=== PATIENT | male | born 1935 ===

== ENCOUNTER 2016-05-26 13:06 | Inpatient (IN) | payer BC ==
[2016-05-26] MEDS ORDERED: Nitroglycerin TAB 0.4 MG* 0.4 MG TAB SL PRN (13:37)
[2016-05-26] MEDS ORDERED: PROCHLORPERAZINE INJ 5 MG/ML 2 ML VIAL IV PRN (13:37)
[2016-05-26] MEDS ORDERED: Morphine INJ* 2 MG/ML 1 ML CARPUJECT IV PRN (13:37)
[2016-05-26] MEDS: Acetaminophen TAB* 325 MG PO PRN ×2 (13:58→20:32)
[2016-05-26] MEDS ORDERED: Heparin VIAL(*) 5000 UNITS/ML VIAL (FIVE THOUSAND) SUBCUT SCH (14:00)
[2016-05-26 14:29] LABS: Hematocrit 37 % (42-52); Hemoglobin 11.9 g/dl (14.0-18.0); Mean Corpuscular HGB Conc 33 g/dl (31-36); Mean Corpuscular Hemoglobin 28 pg (27-31); Mean Corpuscular Volume 86 fL (80-94); Mean Platelet Volume 8 um3 (7.4-10.4); Red Blood Count 4.24 10^6/ul (4.0-5.4); Red Cell Distribution Width 15 % (10.5-15); White Blood Count 8.6 10^3/ul (3.5-10.8)
[2016-05-26 14:45] LABS: Albumin 3.4 g/dL (3.2-5.2); BUN/Creatinine Ratio 22.2 (8-20); EGFR African American 70.8 (>60); EGFR Non-African American 55.1 (>60); Globulin 2.8 g/dL (2-4); Potassium 4.5 mmol/L (3.5-5.0); Total Bilirubin 0.5 mg/dL (0.2-1.0); Total Protein 6.2 g/dL (6.4-8.9)
[2016-05-26 14:55] LABS: HDL Cholesterol 31.1 mg/dL
[2016-05-26] MEDS: Insulin GLARGINE(*) 1 UNITS UNIT SUBCUT SCH (15:04)
[2016-05-26 15:13] LABS: Troponin I 0.09 ng/mL (<0.04)
[2016-05-26 15:16] LABS: TSH (Thyroid Stimulating Horm) 1.08 mcIU/mL (0.34-5.60)
[2016-05-26] MEDS: Insulin LISPRO* 1 UNITS UNIT SUBCUT SCH ×3 (17:43→20:40)
[2016-05-26] MEDS ORDERED: Heparin DRIP 25,000 UNITS(*) 25,000 UNITS/500 ML BAG IV SCH (17:45)
--- NOTE | 2016-05-26 17:59 | PN ---
Hospitalist Progress Note HOSPITALIST ADDENDUM Patient's troponin continues to trend up, now at 0.15. He remains chest pain free, but does have a good story and risk factors. We reviewed risks and benefits of anticoagulation. He reports some blood on the toilet paper when he has a BM (likely hemorrhoidal), but at this point, I believe benefits surpass risks. Will start heparin drip with no boluses and monitor closely. Continue to monitor troponins until peak. updated at bedside.
[2016-05-26] MEDS ORDERED: Heparin VIAL(*) 5000 UNITS/ML VIAL (FIVE THOUSAND) IV SCH (18:00)
[2016-05-26 18:23] LABS: Hematocrit 36 % (42-52); Hemoglobin 11.7 g/dl (14.0-18.0); Mean Corpuscular HGB Conc 33 g/dl (31-36); Mean Corpuscular Hemoglobin 28 pg (27-31); Mean Corpuscular Volume 85 fL (80-94); Mean Platelet Volume 7 um3 (7.4-10.4); Red Blood Count 4.22 10^6/ul (4.0-5.4); Red Cell Distribution Width 15 % (10.5-15); White Blood Count 6.7 10^3/ul (3.5-10.8)
[2016-05-26] MEDS ORDERED: Diazepam TAB(*) 5 MG PO ONE (18:40)
[2016-05-26] MEDS ORDERED: diPHENhydraMINE PO* 50 MG PO ONE (18:40)
[2016-05-26] MEDS ORDERED: NS 0.45% 1000 ML BAG* 1,000 ML IV SCH (18:40)
--- NOTE | 2016-05-26 19:04 | HP ---
HISTORY AND PHYSICAL: DATE OF ADMISSION: 05/26/16 TIME OF EVALUATION: 12:40 p.m. PRIMARY CARE PROVIDER: Dr. Irais Awan. CHIEF COMPLAINT: Chest pain. HISTORY OF PRESENT ILLNESS: Mr. Hayden is an 81-year-old male with a past medical history of hypertension, diabetes, obesity, who presented to the [facility] with complaints of chest pain. The patient states that he woke up in his usual state of health, went to the bathroom, and started to have retrosternal discomfort that rapidly progressed to severe pain, 9/10 in intensity that he describes as a pressure and heaviness on his chest, radiating to his neck. This was associated with dyspnea, diaphoresis, nausea, and he called his to go to the emergency room. He states that he has taken an aspirin at home and by the time he got to the hospital, it was at least half an hour later and he was still having pain, but after receiving medications in the emergency room, he states the pain resolved and he has remained chest pain free since then. He denies any prior episodes of chest pain like this. He states that he was on his usual state of health when he went to bed last night and that he actually felt well when he woke up this morning, just when he went to the bathroom, he has had the symptoms started. He states that for the past month, he has noted some dyspnea at night associated with dry cough to the point that he has to sit up and start to cough , but he denies paroxysmal nocturnal dyspnea, lower extremity edema, weight gain , fever, chills, urinary or GI symptoms. PAST MEDICAL HISTORY: 1. Obesity. 2. Hypertension. 3. Type 2 diabetes. 4. BPH. 5. Arthritis. 6. GERD. PAST SURGICAL HISTORY: The patient had diverticulitis complicated by an abscess requiring colon resection done at [facility] in August 2015. MEDICATIONS: Medication list: 1. Amlodipine 5 mg p.o. daily. 2. Finasteride 5 mg p.o. daily. 3. Glipizide 10 mg p.o. b.i.d. 4. Metformin 1000 mg p.o. b.i.d. 5. Multivitamin 1 tablet p.o. daily. 6. Fish oil 2400 mg p.o. daily. 7. Omeprazole 20 mg p.o. daily. 8. Terazosin 6 mg p.o. at bedtime. 9. Triamterene/hydrochlorothiazide 37.5/25 mg 1 capsule p.o. daily. 10. Valsartan 80 mg p.o. daily. ALLERGIES: No known drug allergies. The patient had peripheral neuropathy with ciprofloxacin according to records from [facility]. FAMILY HISTORY: The patient's mother of some malignancy, but he does not know what kind. He denies history of coronary artery disease in his family. SOCIAL HISTORY: He was a smoker for more than 30 years, but he has quit 40 years ago. He denies any alcohol or drug use. Surrogate decision maker is his , Pat Hayden, phone #[phone]. REVIEW OF SYSTEMS: A 14-point review of systems was performed and all the pertinent negative and positive findings are in the HPI. PHYSICAL EXAMINATION GENERAL: The patient is a pleasant, obese, elderly male, lying in bed, in no acute distress. VITAL SIGNS: Temperature 97.3, heart rate is 65, respiratory rate is 18, blood pressure is 111/67. HEENT: Pupils are equal, reactive to light. Moist mucous membranes. NECK: There is no JVD. CHEST: Breath sounds present bilaterally with no added sounds. CARDIOVASCULAR: Normal S1, S2. Regular rate and rhythm. ABDOMEN: Obese, soft, nontender, nondistended. Bowel sounds are present. EXTREMITIES: No edema. The patient has bilateral upper and lower extremity pulses that are equal. NEURO: He is alert, awake, oriented x3. Able to move all 4 extremities. DIAGNOSTIC STUDIES/LAB DATA: The patient had a CBC done at [facility] that showed a WBC of 8.9, hemoglobin of 13.6, hematocrit of 40, platelets of 257 with 54% neutrophils. INR was 0.95. Glucose 295, BUN 27, creatinine 1.4, sodium 138, potassium 4.1, chloride of 101, bicarb of 25, anion gap of 16, calcium of 9, total protein of 7, albumin of 3.3, AST 22, ALT 35, alk phos 55. CPK 91. Troponin was 0.01. There is no report of a chest x-ray. Initial EKG done on May 26 at 10:16 showed a narrow complex tachycardia at 121 beats per minute with no ST-T changes, but Q waves in II and aVF. Repeat EKG was done prior to transfer on the same date at 11:35 a.m. and it showed sinus rhythm with a first-degree AV block with the same Q waves in II and aVF, but no other ST-T changes. We have no prior EKG in our system to compare. ASSESSMENT AND PLAN: Mr. Hayden is an 81-year-old male with a past medical history of type 2 diabetes, hypertension, benign prostatic hyperplasia, arthritis, gastroesophageal reflux disease, who presented to the [facility] with complaints of chest pain, shortness of breath, and diaphoresis, transferred to our facility for further workup. 1. Chest pain. The patient's description of his chest pain is concerning. It is retrosternal in location, pressure in nature associated with dyspnea and diaphoresis. He does have risk factors for coronary artery disease including diabetes and hypertension. We have no prior EKGs to compare at this time and he is going to be admitted for observation to telemetry. He is going to have serial EKGs and serial cardiac enzymes. At the time of this interview, he is chest pain free. We are going to continue low-dose aspirin. We are going to add statin and as he is a little bradycardic now, I am going to hold off on the beta itz and continue to monitor him on telemetry. If acute coronary syndrome is ruled out, the patient will undergo a pharmacological nuclear stress test in the morning. At this point, he is chest pain free. His EKG shows no acute changes. First cardiac enzyme was negative, so I believe further anticoagulation is not indicated at this point. 2. Episode of supraventricular tachycardia. The patient's EKG from [facility] showed narrow complex tachycardia. He received amiodarone while in the emergency room because his blood pressure was 113/76, but apparently no other agents had been tried prior to that and his rhythm now is sinus with a first- degree AV block. At this point, we are just going to monitor him on telemetry and I am going to check a thyroid function test. 3. Episodes of nocturnal dyspnea. Although his nocturnal cough can be associated with postnasal drip, I am concerned over the possibility of congestive heart failure. The patient is going to have an echocardiogram checked. At this time, his lungs sound clear. He has no lower extremity edema. So, I believe further diaphoresis is not indicated. I am just going to continue his usual triamterene and hydrochlorothiazide. 4. Type 2 diabetes. I am going to hold glipizide and metformin for now. The patient will receive Lantus and lispro sliding scale. 5. Hypertension. It is controlled at this time. I am going to continue his valsartan, amlodipine, terazosin, and diuretics with holding parameters. 6. Benign prostatic hyperplasia. Continue finasteride. 7. DVT prophylaxis. The patient has a score of 4 on the DVT Prophylaxis Risk Assessment Guide and he will be started on subcutaneous heparin. 8. Code status was discussed with the patient and he wishes to be a full code. TIME SPENT: Sixty-five minutes was spent with the patient interview, medical records review, physical examination to complete this admission, more than half this time was spent [id number] with the patient and coordination of care. We are going to obtain records from his PCP and from [facility] from his prior surgery in August 2015. CC: [facility] Womack, [place], phone #[phone] * [id number]/[facility] #: [id number] JOLYNN
[2016-05-26] MEDS: Atorvastatin* 20 MG TAB PO SCH (20:30)
[2016-05-26] MEDS: Terazosin CAP* 1 MG PO SCH (20:31)
[2016-05-26] MEDS: Terazosin CAP* 5 MG PO SCH (20:38)
--- NOTE | 2016-05-26 21:26 | CONS ---
CARDIOLOGY CONSULT REPORT: DATE OF CONSULT: 05/26/16 HISTORY OF PRESENT ILLNESS: I was asked by Dr. Acosta to see this 81-year-old male patient, who was transferred from [facility] after he presented there with chest pain and tachycardia. He received amiodarone and he was transferred here for further management. I was called because of increasing troponin and comorbidities. He had abnormal EKG here, which showed sinus or possible ectopic or sinus with first-degree AV block, Q waves in leads II, III, and aVF, and J-point elevation in leads V1, V2, and V3, borderline in nature. He does have significant comorbidities including systemic arterial hypertension ; hyperlipidemia; diabetes mellitus, type 2; morbid obesity; very remote history of tobacco consumption. Since been at [facility], he has been chest- pain free. He gives no nausea, no vomiting. No myocardial infarction. He gives no tachycardia. He gives no orthopnea. No history of congestive heart failure. In our facility here, he had been having troponins increasing and the first troponin is 0.09 at 14:20, the second troponin 0.15 at 1633. He is chest- pain free. His review of all other systems essentially is negative. PAST MEDICAL HISTORY: Includes systemic arterial hypertension, diabetes, morbid obesity, hyperlipidemia. PAST SURGICAL HISTORY: He had a history of partial colectomy secondary to diverticulitis. MEDICATIONS: As an inpatient include: 1. Heparin. 2. Lantus insulin. 3. Prilosec 20 mg daily. 4. Hytrin 1 mg at bedtime and 5 mg as well at bedtime. 5. Dyazide. 6. Diovan 80 mg daily. He is not on beta-itz treatment, we are trying to find out if there is any reason why he is not. The monitor is showing some pauses. ALLERGIES: He is allergic to CIPROFLOXACIN. SOCIAL HISTORY: No history of smoking, he did smoke many years ago, he quit. No history of illicit drug use. No history of alcohol drinking. He is . He has 3 kids, doing well. REVIEW OF SYSTEMS: Review of all other systems essentially is negative. PHYSICAL EXAM: He is awake, alert, and oriented. He is not in any acute distress. He has no symptoms of chest pain at the moment. Vitals: Blood pressure 121/65, pulse 78 and sinus rhythm, temperature 97.5, respiratory rate 16. Head and Neck Exam: Normocephalic, atraumatic head. Ears, nose, and throat essentially benign. Neck: Supple. JVP is not elevated. No carotid bruit. No masses in the neck are appreciated. Chest: Clear to auscultation. No rales, no wheezes, no added sounds appreciated. Heart: Normal, regular, S1 , S2. No added sound, no gallops, no rubs. Abdomen: Obese, soft. Positive bowel sounds. Extremities: No edema, no cyanosis, no clubbing. Skin Exam: Normal. Psych: Normal affect and mood. FULL STACK DEVELOPER: No focal deficits appreciated. DIAGNOSTIC STUDIES/LAB DATA: EKG as described. His white blood cells 8.6, hemoglobin 11.9, hematocrit 37, and platelets 207. Sodium 135, potassium 4.5, chloride 105, total CO2 25, BUN 28, creatinine 1.26, his glucose 235. Troponin 0.09 and then 0.15. Total protein 6.2. Triglycerides 323, cholesterol 182, LDL 86, HDL 31. TSH 1.08. IMPRESSION: The patient is an 81-year-old male patient with: 1. Presentation with symptoms of chest pain; abnormal troponins, still going up ; abnormal EKG as described, very concerning for coronary artery disease. 2. Abnormal troponin. 3. Abnormal EKG as described. 4. Morbid obesity. 5. Diabetes mellitus, type 2. 6. Systemic arterial hypertension. 7. Significant hypertriglyceridemia and low HDL syndrome. 8. Mildly elevated creatinine. PLAN: I am very concerned about his presentation for coronary artery disease. Based on his initial presentation with chest pain, based on his abnormal EKG, based on troponin still rising, I do recommend a left cardiac catheterization to evaluate definitely his coronary anatomy. Benefits and risks discussed with the patient and he is willing to proceed. Any further decisions will be based on the results of his echo. Meanwhile, he is to continue on heparin, aspirin, and Norvasc for now as well as Lipitor. We will find out if we can initiate a very low-dose beta-itz treatment and I will obtain a transthoracic echocardiogram to evaluate his left ventricular systolic function and any wall motion abnormality and any significant valvular disease. I answered all his concerns and questions up to his satisfaction. TIME SPENT: More than half of at least 65-plus minutes was in the education and counseling mode explaining all of the above plan to him and answering all of his concerns and questions up to his satisfaction. CC: Dr. Acosta; Dr. Solis [id number]/[facility] #: [id number] JOLYNN
[2016-05-27 02:45] LABS: Calcium 8.8 mg/dL (8.6-10.3); EGFR African American 73.5 (>60); EGFR Non-African American 57.2 (>60); Potassium 4.1 mmol/L (3.5-5.0)
[2016-05-27 02:50] LABS: Troponin I 0.11 ng/mL (<0.04)
[2016-05-27 07:26] LABS: Hematocrit 34 % (42-52); Hemoglobin 11.5 g/dl (14.0-18.0); Mean Corpuscular HGB Conc 34 g/dl (31-36); Mean Corpuscular Hemoglobin 28 pg (27-31); Mean Corpuscular Volume 85 fL (80-94); Mean Platelet Volume 8 um3 (7.4-10.4); Red Blood Count 4.05 10^6/ul (4.0-5.4); Red Cell Distribution Width 15 % (10.5-15); White Blood Count 7.3 10^3/ul (3.5-10.8)
[2016-05-27] MEDS: Insulin LISPRO* 1 UNITS UNIT SUBCUT SCH ×7 (08:54→20:29)
[2016-05-27] MEDS: amLODIPine TAB* 5 MG PO SCH (08:57)
[2016-05-27] MEDS: Aspirin EC Low Dose* 81 MG TAB.EC PO SCH (08:57)
[2016-05-27] MEDS: Valsartan TAB* 80 MG PO SCH (08:57)
[2016-05-27] MEDS: Finasteride TAB* 5 MG PO SCH (08:58)
[2016-05-27] MEDS: Triamterene/HCTZ 37.5-25 MG* CAP PO SCH (08:58)
[2016-05-27] MEDS: Omeprazole CAP* 20 MG PO SCH (08:58)
[2016-05-27] MEDS ORDERED: amLODIPine TAB* 5 MG PO SCH (09:00)
[2016-05-27] MEDS ORDERED: Triamterene/HCTZ 37.5-25 MG* CAP PO SCH (09:00)
[2016-05-27] MEDS ORDERED: Valsartan TAB* 80 MG PO SCH (09:00)
--- NOTE | 2016-05-27 09:44 | ECHO ---
Patient: CELE TAVAREZ [facility] Rec#: [id number] : 1935 Date: 05/27/2016 Age: 81y Height: 177.8 cm / 70.0 in Weight: 87.09 kg / 191.9 lbs Sex: M BSA: 2.05 Room#: [facility] Admit Date#: 05/26/2016 Type: Inpatient Referring: Tracy Davis MD Reading: Graham Solis MD Drag Down: Martha Bhat [facility] Transthoracic Echocardiogram Indication: CP/Abn EKG BP: 143/79 HR: 78 Rhythm: NSR Findings History: HTN,obesity,HLD,remote smoking history,abn EKG. Technical Comments: The study quality is good. Completed at 0900. Left Ventricle: The left ventricular chamber size is normal. Mild to moderate concentric left ventricular hypertrophy is observed. There is normal left ventricular systolic function. The estimated ejection fraction is 55-60%. Abnormal left ventricular diastolic filling is observed, consistent with impaired relaxation. Left Atrium: The left atrium is moderate to severely dilated. Right Ventricle: The right ventricular cavity size is normal. The right ventricular global systolic function is normal. Right Atrium: The right atrial cavity size is normal. Aortic Valve: The aortic valve is trileaflet. The aortic valve leaflets are moderately thickened. Mild aortic leaflet calcification is visualized. Systolic excursion of the aortic valve cusps is reduced. There is a trace of aortic regurgitation. There is mild aortic stenosis. Highest aortic valve velocity was acquired with Pedoff in apical position. Mitral Valve: There is mitral annular calcification. The mitral valve leaflets are moderately thickened. Mitral valve leaflet mobility is mildly restricted. There is mild mitral regurgitation. The mitral regurgitant jet is centrally directed. There is mild to moderate mitral stenosis. Tricuspid Valve: The tricuspid valve leaflets are normal. There is trace tricuspid regurgitation. There is no tricuspid stenosis. Pulmonic Valve: The pulmonic valve appears normal. There is no evidence of pulmonic regurgitation. There is no pulmonic stenosis. Pericardium: A pericardial fat pad is visualized. Aorta: There is mild dilatation of the ascending aorta. There is no dilatation of the aortic arch. There is no dilation of the aortic root. Pulmonary Artery: The main pulmonary artery appears normal. Venous: The inferior vena cava is dilated. There is a greater than 50% respiratory change in the inferior vena cava dimension. Summary: There was not any prior study for comparison. Conclusions The left ventricular chamber size is normal. Mild to moderate concentric left ventricular hypertrophy is observed. The estimated ejection fraction is 55-60%. Abnormal left ventricular diastolic filling is observed, consistent with impaired relaxation. The left atrium is moderate to severely dilated. There is a trace of aortic regurgitation. There is mild aortic stenosis. There is mild mitral regurgitation. There is mild to moderate mitral stenosis. There is trace tricuspid regurgitation. There is mild dilatation of the ascending aorta. Measurements Name Value Normal Range RVIDd (AP) 2D 2.7 cm (0.9 - 2.6) RVDdMajor (2D) 3.7 cm (2.2 - 4.4) RAd ISD 4CH 4.5 cm (3.4 - 4.9) RA (A4C)W 4 cm (2.9 - 4.6) IVSd (2D) 1.1 cm (0.6 - 1) LVPWd (2D) 1.5 cm (0.6 - 1) LVIDd (2D) 4.2 cm (3.6 - 5.4) LVIDs (2D) 2.9 cm - LV FS (2D) 31 % (25 - 45) Aortic Annulus 1.8 cm (1.4 - 2.6) Ao root diameter (2D) 3.2 cm (2.1 - 3.5) Ascending Ao 3.6 cm (2.1 - 3.4) Aortic arch 3.4 cm (1.8 - 3.4) LA dimension (AP) 2D 4.8 cm (2.3 - 3.8) LAd ISD 4CH 5 cm (2.9 - 5.3) LA ISD 4CH W 4.4 cm (2.5 - 4.5) Name Value Normal Range LA ESV SP 4CH (A/L) 83 ml - LA ESV SP 2CH (A/L) 60 ml - LA ESV BP (A/L) 74 ml - LA ESV BP (A/L) index 35.99 ml/m2 - LA ESV SP 4CH (MOD) 79 ml - LA ESV SP 2CH (MOD) 58 ml - Name Value Normal Range MV E-wave Vmax 1.2 m/sec - MV deceleration time 126 msec - MV A-wave Vmax 2.3 m/sec - MV E:A ratio 0.52 ratio - LV septal e' Vmax 0.14 m/sec - LV lateral e' Vmax 0.11 m/sec - LV E:e' septal ratio 8.57 ratio - LV E:e' lateral ratio 10.9 ratio - Name Value Normal Range AV Vmax 2.3 m/sec - AV VTI 52.6 cm - AV peak gradient 21.19 mmHg - AV mean gradient 10.86 mmHg - LVOT diameter 2 cm - LVOT Vmax 1.3 m/sec - LVOT VTI 30 cm - LVOT peak gradient 7.03 mmHg - LVOT mean gradient 3.89 mmHg - SV LVOT 91 ml - WALE (continuity Vmax) 1.8 cm2 - WALE (continuity VTI) 1.9 cm2 - Name Value Normal Range MV Vmax 2.3 m/sec - MV VTI 53.1 cm - MV peak gradient 21.2 mmHg - MV mean gradient 7.03 mmHg - MV PHT 36 msec - MVA (PHT) 6.2 cm2 - MVA (continuity VTI) 1.7 cm2 - Name Value Normal Range TR Vmax 2.1 m/sec - TR peak gradient 17 mmHg - RAP 8 mmHg - RVSP 25 mmHg - IVC diameter 2.2 cm - Name Value Normal Range PV Vmax 0.9 m/sec - PV peak gradient 3.1 mmHg -
[2016-05-27] MEDS ORDERED: Midazolam* 1 MG/ML 5 ML VIAL (5 MG) ONE (10:25)
[2016-05-27] MEDS ORDERED: fentaNYL* 50 MCG/ML 2 ML VIAL (100 MCG VIAL) ONE (10:25)
[2016-05-27] MEDS ORDERED: Iohexol 350 (CONTRAST) 200 ML MDV IV ONE (10:25)
[2016-05-27] MEDS ORDERED: Heparin 2 UNITS/ML IVPREMIX* 3,000 ML IV ONE (10:26)
[2016-05-27] MEDS ORDERED: Lidocaine 1% INJ* 10 MG/ML 30 ML SDV ONE (10:26)
[2016-05-27] MEDS ORDERED: Iodixanol* (CONTRAST) 320 MG/ML 100 ML SDV ONE (11:38)
[2016-05-27] MEDS ORDERED: Nitroglycerin TAB 0.4 MG* 0.4 MG TAB SL PRN (12:09)
[2016-05-27] MEDS ORDERED: Acetaminophen TAB* 325 MG PO PRN (12:09)
[2016-05-27] MEDS ORDERED: oxyCODONE/Acetamin 5/325 MG* TAB PO PRN (12:09)
[2016-05-27] MEDS ORDERED: Atropine 1MG/ML INJ* 1 ML VIAL IV PUSH PRN (13:00)
--- NOTE | 2016-05-27 13:57 | PN ---
Subjective Date of Service: 05/27/16 Interval History: HOSPITALIST PROGRESS NOTE Patient seen and examined at bedside. He feels a little better today. Denies CP, palpitations or dyspnea. Family History: Unchanged from Admission Social History: Unchanged from Admission Past Medical History: Unchanged from Admission Objective Active Medications: Acetaminophen (Tylenol Tab*) 650 mg PO Q4H PRN PRN Reason: PAIN - MILD Amlodipine Besylate (Norvasc Tab*) 5 mg PO DAILY [facility] Last Admin: 05/27/16 08:57 Dose: 5 mg Aspirin (Aspirin Ec Low Dose*) 81 mg PO DAILY [facility] Last Admin: 05/27/16 08:57 Dose: 81 mg Atorvastatin Calcium (Lipitor*) 20 mg PO 2100 [facility] Last Admin: 05/26/16 20:30 Dose: 20 mg Atropine Sulfate (Atropine 1mg/Ml Inj*) 0.5 mg IV PUSH ONCE PRN PRN Reason: SYMPTOMATIC BRADYCARDIA < 50 Stop: 05/28/16 13:01 Finasteride (Proscar Tab*) 5 mg PO DAILY [facility] Last Admin: 05/27/16 08:58 Dose: 5 mg Sodium Chloride (Ns 0.9% 1000 Ml*) 1,000 mls @ 125 mls/hr IV .per rate [facility] Insulin Glargine (Lantus(*)) 10 units SUBCUT DAILY [facility] Last Admin: 05/26/16 15:04 Dose: 10 units Insulin Human Lispro (Humalog*) 0 units SUBCUT AC [facility] PRN Reason: Protocol Last Admin: 05/27/16 13:44 Dose: Not Given Insulin Human Lispro (Humalog*) 0 units SUBCUT ACHS [facility] PRN Reason: Protocol Last Admin: 05/27/16 08:58 Dose: 3 units Metoprolol Tartrate (Lopressor Tab*) 25 mg PO BID [facility] Morphine Sulfate (Morphine Inj (Syringe)*) 2 mg IV Q4H PRN PRN Reason: SEVERE PAIN Omeprazole (Prilosec Cap*) 20 mg PO DAILY [facility] Last Admin: 05/27/16 08:58 Dose: 20 mg Oxycodone/Acetaminophen (Percocet 5/325 Tab*) 1 tab PO Q6H PRN PRN Reason: PAIN - SEVERE Prochlorperazine Edisylate (Compazine Inj*) 5 mg IV Q6H PRN PRN Reason: NAUSEA/VOMITING Terazosin HCl (Hytrin Cap*) 1 mg PO BEDTIME [facility] Last Admin: 05/26/16 20:31 Dose: 1 mg Terazosin HCl (Hytrin Cap*) 5 mg PO BEDTIME [facility] Last Admin: 05/26/16 20:38 Dose: 5 mg Triamterene/HCTZ (Dyazide Cap*) 1 cap PO DAILY [facility] Last Admin: 05/27/16 08:58 Dose: 1 cap Valsartan (Diovan Tab*) 80 mg PO DAILY [facility] Last Admin: 05/27/16 08:57 Dose: 80 mg Vital Signs 05/27/16 13:43 Temperature 97.8 F Pulse Rate 81 Respiratory 14 Rate Blood Pressure 146/82 (mmHg) O2 Sat by Pulse 98 Oximetry Oxygen Devices in Use Now: Nasal Cannula Appearance: Pleasant elderly male lying in bed in NAD. Eyes: No Scleral Icterus Ears/Nose/Mouth/Throat: Mucous Membranes Moist Neck: Trachea Midline Respiratory: Symmetrical Chest Expansion and Respiratory Effort, Clear to Auscultation Cardiovascular: RRR - Normal S1 and S2 Abdominal: NL Sounds; No Tenderness; No Distention Neurological: Alert and Oriented x 3, NL Muscle Strength and Tone Lines/Tubes/Other Access: Clean, Dry and Intact Peripheral IV Nutrition: Taking PO's Result Diagrams: 05/27/16 07:13 05/27/16 02:13 Assess/Plan/Problems-Billing Assessment: Mr. Hayden is an 81yo M with PMH of obesity, HTN, DM, BPH, arthritis, GERD, CKD stage 3, transferred from [facility] with c/o chest pain for further w/u. - Patient Problems (1) Chest pain Comment: - Troponins were borderline, but his story was very concerning. - Plan for cardiac cath today. - Continue medical management with ASA, metoprolol, statin. (2) SVT (supraventricular tachycardia) Comment: - No further episodes at this time. - Continue metoprolol and monitor on Telemetry. (3) Diabetes Comment: - Continue Lantus and Lispro SS. (4) HTN (hypertension) Comment: - Controlled. - Continue Valsartan, Amlodipine, HCTZ/triamterene and metoprolol. (5) DVT prophylaxis Comment: - SQ heparin. (6) Full code status Status and Disposition: Inpatient.
[2016-05-27] MEDS: Insulin GLARGINE(*) 1 UNITS UNIT SUBCUT SCH (14:01)
[2016-05-27] MEDS: NS 0.9% 1000 ML* 1,000 ML IV SCH ×2 (14:03→22:19)
[2016-05-27] MEDS: Terazosin CAP* 1 MG PO SCH (20:27)
[2016-05-27] MEDS: Terazosin CAP* 5 MG PO SCH (20:27)
[2016-05-27] MEDS: Metoprolol Tartrate TAB* 25 MG PO SCH (20:27)
[2016-05-27] MEDS: Atorvastatin* 20 MG TAB PO SCH (20:27)
--- NOTE | 2016-05-27 21:30 | CATH ---
CC: Dr. Acosta; Dr. Solis CARDIAC CATHETERIZATION REPORT: DATE OF PROCEDURE: 05/27/16 PROCEDURE: Left cardiac catheterization, selective coronary angiography, left ventriculography. HISTORY: The patient is an 81-year-old male patient who presented initially to [facility] with symptoms of chest pain concerning for angina in the setting of SVT. He had mildly elevated troponins. He was transferred to our facility for further evaluation. After his SVT was treated, he had an EKG that showed what looks like Q- waves in leads 2,3, and aVF and a borderline J-point, what appears to be ST elevation anteriorly. In our facility he continues to have rise in his troponin. He does have significant comorbidities and risk factors for CAD including morbid obesity, diabetes mellitus type 2, systemic arterial hypertension, hyperlipidemia and possible sleep apnea. Because of all of the above, he was further referred for cardiac catheterization to evaluate his coronary anatomy. After informed written consent had been obtained, the patient was brought into the cardiac catheterization lab where the right femoral region was prepped and draped in the usual sterile fashion. 1% Xylocaine was used for local anesthesia. Next, the right femoral artery was entered and a 6-Vincentian sheath placed into the right femoral artery, it was a long sheath, I was unable to advance the wire and subsequently, access was obtained successfully from the left femoral artery. Left coronary engaged and left coronary arteriography performed. This catheter was removed and a 6-Vincentian JR catheter was advanced over the right coronary artery was engaged and right coronary arteriography was performed. This catheter was removed and left ventriculography was not performed as the patient just had an echocardiogram today that showed normal left ventricular systolic function and also to minimize dye exposure nephrotoxicity risk in a diabetic elderly patient. HEMODYNAMICS: The central aortic pressure was 150/90. Left main coronary artery. The left main coronary artery was not present. There is two separate ostia for the left coronary system. The left anterior descending artery was a large caliber vessel. It did reach and wrap around the apex of the left ventricle. In the proximal segment there is about 60% noncritical stenosis and it continues with some luminal irregularities. Circumflex coronary artery. The circumflex coronary artery was a very large caliber vessel and the most proximal segment, there is about 20% to 30% disease. It bifurcates into a large obtuse marginal branch that also bifurcates after that with a distal branch that was a small caliber vessel that has ostial 90% disease. The bifurcation of the main left circ gave rise to an OM. That OM has about 80% stenosis and then it bifurcates into small caliber vessels. This was a distal branch. Right coronary artery. The right coronary artery was a large caliber vessel. It was dominant and it has mild luminal irregularity without any definite obstructive disease. Left ventriculography was not performed as mentioned above in the diabetic patient to minimize a dye exposure nephrotoxicity and also the patient had a transthoracic echocardiogram this morning that showed normal left ventricular systolic function and wall motion. CONCLUSION: 1. Two separate ostia for the left coronary system. 2. Severe distal branch stenosis of the obtuse marginal of the left circ of 80 % to 90% as described. 3. Moderate, up to 60% noncritical disease of the left anterior descending artery. The findings were discussed with Dr. Jonas from the interventional cardiology services who kindly reviewed with recommendation for maximizing medical treatment at the present time and strict control for his comorbidities and risk factors for heart disease. [id number]/[facility] #: [id number] JOLYNN
[2016-05-27] MEDS: Heparin VIAL(*) 5000 UNITS/ML VIAL (FIVE THOUSAND) SUBCUT SCH (22:20)
[2016-05-28] MEDS: Heparin VIAL(*) 5000 UNITS/ML VIAL (FIVE THOUSAND) SUBCUT SCH ×2 (05:01→13:13)
[2016-05-28 05:50] LABS: Hematocrit 33 % (42-52); Mean Corpuscular HGB Conc 34 g/dl (31-36); Mean Corpuscular Hemoglobin 28 pg (27-31); Mean Corpuscular Volume 85 fL (80-94); Mean Platelet Volume 7 um3 (7.4-10.4); Red Blood Count 3.88 10^6/ul (4.0-5.4); Red Cell Distribution Width 15 % (10.5-15); White Blood Count 7.4 10^3/ul (3.5-10.8)
[2016-05-28 06:02] LABS: Albumin 3.4 g/dL (3.2-5.2); BUN/Creatinine Ratio 20.2 (8-20); Calcium 8.6 mg/dL (8.6-10.3); EGFR African American 79.5 (>60); EGFR Non-African American 61.8 (>60); Globulin 2.7 g/dL (2-4); Potassium 3.8 mmol/L (3.5-5.0); Total Bilirubin 0.5 mg/dL (0.2-1.0); Total Protein 6.1 g/dL (6.4-8.9)
[2016-05-28] MEDS: NS 0.9% 1000 ML* 1,000 ML IV SCH (06:32)
[2016-05-28] MEDS: Omeprazole CAP* 20 MG PO SCH (08:29)
[2016-05-28] MEDS: Aspirin EC Low Dose* 81 MG TAB.EC PO SCH (08:29)
[2016-05-28] MEDS: Metoprolol Tartrate TAB* 25 MG PO SCH (08:30)
[2016-05-28] MEDS: amLODIPine TAB* 5 MG PO SCH (08:30)
[2016-05-28] MEDS: Triamterene/HCTZ 37.5-25 MG* CAP PO SCH (08:30)
[2016-05-28] MEDS: Finasteride TAB* 5 MG PO SCH (08:30)
[2016-05-28] MEDS: Valsartan TAB* 80 MG PO SCH (08:30)
[2016-05-28] MEDS: Insulin LISPRO* 1 UNITS UNIT SUBCUT SCH ×4 (09:05→12:53)
[2016-05-28] MEDS: Insulin GLARGINE(*) 1 UNITS UNIT SUBCUT SCH (09:06)
[2016-05-28 11:21] VITALS: BP 126/64
--- NOTE | 2016-05-29 01:34 | DS ---
CC: Marce Womackhrie, [place], phone #[phone]; Dr. Solis DISCHARGE SUMMARY: DATE OF ADMISSION: 05/26/16 DATE OF DISCHARGE: 05/28/16 PRIMARY CARE PROVIDER: Dr. Irais Awan. SUPERVISOR [employer]: Dr. Solis. DISCHARGE DIAGNOSES: 1. Coronary artery disease. 2. Episode of supraventricular tachycardia. SECONDARY DIAGNOSES: 1. Obesity. 2. Hypertension. 3. Type 2 diabetes. 4. Benign prostatic hypertrophy. 5. Arthritis. 6. Gastroesophageal reflux disease. 7. Diverticulitis complicated by an abscess requiring colon resection done in August 2015. MEDICATION LIST: 1. Multivitamin 1 tablet p.o. daily. 2. Finasteride 5 mg p.o. daily. 3. Omeprazole 20 mg p.o. daily. 4. Fish oil 2400 mg p.o. daily. 5. Amlodipine 5 mg p.o. daily. 6. Triamterene/hydrochlorothiazide 37.5/25 mg one capsule p.o. daily. 7. Valsartan 80 mg p.o. daily. 8. Terazosin 6 mg p.o. at bedtime. 9. Metformin 1000 mg p.o. b.i.d. 10. Glipizide 10 mg p.o. b.i.d. New medications: 1. Metoprolol tartrate 25 mg p.o. b.i.d. 2. Atorvastatin 40 mg p.o. daily. 3. Aspirin 81 mg p.o. daily. 4. Nitroglycerin 0.4 mg sublingual q.5 minutes p.r.n. chest pain, maximum of 3 doses. HOSPITAL COURSE: Mr. Hayden is an 81-year-old male with a past medical history as stated above who presented to the [facility] on 05/26/16 with complaints of chest pain associated with d iaphoresis, nausea. He was found to be in SVT when he got to [facility] and he was lat er on transferred to our facility for further evaluation. For more details about his presentation, I refer you to his history and physical. Although the patient had no acute ischemic changes on his EKG, he did have Q waves in the inferior l ilene. Initial troponin at [facility] had been negative, but in our facility it trended up to 0.15. The patient had a transthoracic echocardiogram that showed ejection fraction of 55% to 60%, mild aor tic stenosis, mild mitral regurgitation, gyul-lx-otbuynnc mitral stenosis, mild dilatation of the as cending aorta. The patient was seen in consultation by Cardiology (Dr. Solis) and he was very concerned about t he patient's presentation for coronary artery disease. Based on his initial presentation with chest pain, abnormal EKG, troponins still rising, he recommended left cardiac catheterization to evaluate his coronary anatomy. He also recommended heparin drip, aspirin, amlodipine, and Lipitor and his p padmini was to add a low dose beta-itz. A cardiac catheterization was performed on 05/27/16 and severe distal branch stenosis of the obtuse marginal of the left circumflex of 80% to 90%. Moderate, up to 60% noncritical disease of the left anterior descending artery. The findings were discussed with Interventional Cardiology (Dr. Jonas) and the recommendation was to maximize medical therapy with control of his comorbidities and risk f actors for heart disease. Metoprolol was added to his regimen and the patient has tolerated well. His blood pressure has clem ined within normal limits. Heart rate has been controlled. He had no further episodes of SVT or ch est pain. He feels well and is anxious for discharge home at this point. He was felt to be medically stable f or discharge. PHYSICAL EXAMINATION: Vital Signs: Temperature 97.5, heart rate is 68, respiratory rate is 16, oxy gen saturation is 97% on room air, and blood pressure is 126/64. General: The patient is a pleasan t elderly male sitting up in bed, in no acute distress. CVS: Normal S1, S2. Regular rate and rhyt hm. Chest: Breath sounds present bilaterally with no added sounds. Abdomen: Obese, soft. Bowel sounds present. Extremities: No edema. There is no hematoma to the left groin. Good femoral pulse s bilaterally. Neuro: He is alert, awake, oriented x3. Able to move all 4 extremities. DIET: Heart healthy diet, consistent carb. ACTIVITY: As tolerated. The patient received education about the limitations after cardiac catheterization. DISPOSITION: To home. STATUS WHILE IN THE HOSPITAL: Inpatient. Please keep in mind that this is a summarized version of this patient's hospital stay. If you need more information, please feel free to call me at [phone] or please obtain the full medical jeri rds. [id number]/[facility] #: [id number]
== END 2016-05-28 14:10 | disposition home or self-care (01) | DRG 192 ==
LOC: MEDTELE 13:06 → OBSVTOIN 05-27 14:04
PROVIDERS: ADMIT Internal Medicine; ATTEND Internal Medicine
PROC: B2111ZZ Fluoroscopy of Multiple Coronary Arteries using Low Osmolar Contrast (ICD-10-PCS; 2016-05-27)
PROC: B2151ZZ Fluoroscopy of Left Heart using Low Osmolar Contrast (ICD-10-PCS; 2016-05-27)
PROC: 4A023N7 Measurement of Cardiac Sampling and Pressure, Left Heart, Percutaneous Approach (ICD-10-PCS; principal; 2016-05-27 10:00)
DX: I25.10 Atherosclerotic heart disease of native coronary artery without angina pectoris (principal); R06.00 Dyspnea, unspecified; E11.9 Type 2 diabetes mellitus without complications; N18.3 Chronic kidney disease, stage 3 (moderate); E66.01 Morbid (severe) obesity due to excess calories; I47.1 Supraventricular tachycardia; N40.0 Benign prostatic hyperplasia without lower urinary tract symptoms; M19.90 Unspecified osteoarthritis, unspecified site; K21.9 Gastro-esophageal reflux disease without esophagitis; Z79.84 Long term (current) use of oral hypoglycemic drugs; Z79.82 Long term (current) use of aspirin; I08.0 Rheumatic disorders of both mitral and aortic valves; I77.819 Aortic ectasia, unspecified site; Z88.1 Allergy status to other antibiotic agents; Z80.9 Family history of malignant neoplasm, unspecified; Z87.891 Personal history of nicotine dependence; I12.9 Hypertensive chronic kidney disease with stage 1 through stage 4 chronic kidney disease, or unspecified chronic kidney disease; E78.1 Pure hyperglyceridemia; Z68.27 Body mass index [BMI] 27.0-27.9, adult
CPT/HCPCS: 36415; 80048; 80053; 80061; 84443; 84484; 84520; 85025; 85730; 93005; 93306; 93454; A9270-GY; C1887; G0378; J1644; J2250; J3010